=== PATIENT | female | born 1985 | race Caucasian/White ===

== ENCOUNTER 2016-11-08 22:13 | Emergency (ER) | payer OTHER ==
[~2016-11-08] VITALS: Ht 165.1 cm; Wt 3.6 kg
[2016-11-08 22:27] VITALS: BP 129/85; PULSE 85; RESP 16; O2SAT 100
[2016-11-08 22:49] LABS: Mean Corpuscular Hemoglobin 30.9 pg (27.0-35.0); Mean Corpuscular Volume 93.4 fL (81-100)
--- NOTE | 2016-11-08 22:49 | ED.REPORT ---
HPI-Seizure Date of Service Nov 08, 2016 ED Provider: Chico Aguirre MD 31 year old female presents to the ER via EMS accompanied by her and children due to seizure just prior to arrival. reports that he heard the patient hit the ground from another room in the house. He entered the room to find the patient on the ground, and witnessed a 20 second episode of tonic- clonic seizure activity, with blood/foaming from her mouth during, and confusion and disorientation after the event. Patient denies any memory of the episode, and any resultant head trauma from the fall. She mentions intermittent numbness of bilateral upper extremities over the past few months. Recently she was on a week course of Prednisone to treat chronic back issues. reports that the patient has been under a lot of stress lately. Nursing Notes Stated Complaint: SEIZURE Chief Complaint: Neuro Symptoms/ Deficits Nursing Notes Reviewed: Yes Allergies: Coded Allergies: No Known Allergies (Unverified , 11/08/16) General Time Seen by Provider: 22:49 Chief Complaint Chief Complaint: Seizure, generalized Hx Obtained From: Patient, Spouse Arrived By: Ambulance Onset Occurred: Just prior to arrival Associated with: Reports: Disoriented post-seizure, Tongue biting Pertinent Negative: Pt denies other symptoms Related History: Denies: Known seizure disorder Similar Sx Previous: No Past Medical History Past Surgical History Reports: Back/neck surgery Smoking History Unknown if Ever Smoker Social History Alcohol Use: "Social" Other Social History: Good social support, Ambulatory Status Independent Review of Systems Constitutional: Denies: Chills, Fever Respiratory: Denies: Non-productive cough, Shortness of breath Cardiovascular: Denies: Chest pain Neurologic: Reports: Confusion, Seizure, Denies: Focal weakness, Headache Complete sys rev & neg: except as marked. Physical Exam Initial Vital Signs Vital Signs (First) Date Time Temp Pulse Resp B/P Pulse Ox O2 Delivery O2 Flow Rate FiO2 11/08/16 22:27 36.4 85 16 129/85 100 Room Air Initial VS: Reviewed Head / Eyes: Atraumatic, Normocephalic Abdomen / GI: Soft, Non-tender, No guarding, No rebound, No distention Extremities: Vascular intact, Neuro intact, No swelling, No tenderness Skin: Warm, Dry, No cyanosis Psychiatric: Mood/affect normal, Behavior normal, Normal thought content General/Constitutional: Awake, Alert, Well developed, Well nourished Neck: Supple, No meningismus, Full range of motion, No swelling, Non-tender Respiratory / Chest: Breath sounds NL, Breath sounds = bilat, No respiratory distress, No rales, No rhonchi, No wheezing Cardiovascular: Heart rate NL, Regular rhythm, Heart sounds NL, Peripheral circulation NL Neurologic: Oriented X3, Speech NL, No motor deficits, No sensory deficits, CN II - XII intact, Reflexes equal bilat, Cerebellar NL Interpretation & Diagnostics Lab Results Interpretation Result Diagram: 11/08/16222911/08/162229 Test 11/08/16 22:25 11/08/16 22:30 Urine Color Yellow (YELLOW) Urine Appearance Clear (CLEAR,HAZY) Urine pH 7.5 (5.0-8.0) Urine Specific [place] 1.015 (1.003-1.035) Urine Protein Negativemg/dL (NEG,TRACE) Urine Glucose (UA) Negativemg/dL (NEGATIVE) Urine Ketones Tracemg/dL (NEGATIVE) Urine Occult Blood Negative (NEGATIVE) Urine Nitrite Negative (NEGATIVE) Urine Bilirubin Negative (NEGATIVE) Urine Urobilinogen Normalmg/dL (NORMAL) Urine Leukocyte Esterase Negative (NEGATIVE) Urine RBC 0-2/hpf (0-2) Urine WBC 0-5/hpf (0-5) Urine Epithelial Cells Moderate/hpf (NONE-MOD) Urine Crystals Amorphous phosphates Urine Bacteria None/hpf (NONE-FEW) Urine Hyaline Casts None/lpf (NONE) Urine Granular Casts None seen (NONE SEEN) Urine Waxy Casts None seen (NONE SEEN) Urine Red Blood Cell Casts None seen (NONE SEEN) Urine White Blood Cell Casts None seen (NONE SEEN) Urine Mucus Present (None Seen) Urine Trichomonas None seen (NONE SEEN) Urine Yeast None (NONE SEEN) Urinalysis Comment White Blood Count 10.7th/mm3 (3.8-10.1) Red Blood Count 4.11mil/mm3 (3.90-5.20) Hemoglobin 12.7g/dL (12.0-15.6) Hematocrit 38.4% (35.0-46.0) Mean Corpuscular Volume 93.4fL (81-100) Mean Corpuscular Hemoglobin 30.9pg (27.0-35.0) Mean Corpuscular Hemoglobin Concent 33.1% (32.0-37.0) Red Cell Distribution Width 13.0% (12.3-15.4) Platelet Count 312bil/L (150-400) Neutrophils (%) (Auto) 43.2% (40-74) Lymphocytes (%) (Auto) 46.5% (14-46) Monocytes (%) (Auto) 6.5% (4-12) Eosinophils (%) (Auto) 2.9% (0-5) Basophils (%) (Auto) 0.3% (0-3) Band Neutrophils % 1% (1-5) Prothrombin Time 11.1sec (8.1-12.5) Prothromb Time International Ratio 1.04ratio Sodium Level 141mEq/L (134-144) Potassium Level 3.7mEq/L (3.5-5.2) Chloride Level 10mEq/L (97-108) Carbon Dioxide Level 24mmol/L (18-29) Blood Urea Nitrogen 21mg/dL (6-20) Creatinine 0.84mg/dL (0.57-1.00) Estimat Glomerular Filtration Rate 113mL/min (>59) Glucose Level 88mg/dL (60-99) Calcium Level 8.2mg/dL (8.5-10.1) Total Bilirubin 0.5mg/dL (0.0-1.2) Aspartate Amino Transf (AST/SGOT) 16U/L (0-50) Alanine Aminotransferase (ALT/SGPT) 14U/L (0-32) Alkaline Phosphatase 61U/L (25-150) Total Protein 7.2g/dL (6.4-8.4) Albumin 4.1g/dL (3.4-5.0) Alcohols < 10mg/dL (0-10) ECG Interpretation ECG Interpretation: Sinus rhythm, rate 79 Time: 22:58 Interpreted by: ED physician X-Ray Chest Interpretation Chest Xray Interpretation: Normal. View: Portable, 1 view Interpretation / Wet Read by: Wet read ED physician CT Head Interpretation CONCLUSION: Normal non-contrast CT scan of the head. Electronically signed by Dahlia Conde MD Study: Head CT no contrast Interpretation / Wet Read by: Interpret - Radiologist Re-Eval/Medical Decision Med Decision/Clinical Course 31-year-old with no prior seizure history presents after sudden onset tonic-clonic seizure witnessed by the . Evaluation here reveals negative CT, benign blood labs, negative tox screen, and no particular explanation. No family history either. Discussed possibility of them. Seizure meds versus completion of evaluation and awaiting further developments. Her non-driving status disclosed explicitly to her and . She is referred to neurology Dr. campo and to her PCP. Prompt return if worse. Needs MRI and EEG, to be arranged. Discharged now in stable condition. Source of Hx: Old records Re-Evaluation/Progress #1: Time of Eval: 23:01 Re-Evaluation/Progress Note: Patient complains of right temporal headache. Re-Evaluation/Progress #2: Time of Eval: 02:09 Re-Evaluation/Progress Note: Discussed lab and imaging results and plan to discharge. Patient is amenable to the plan. Verbal discharge instructions given, particularly driving restrictions. Patient is opting not to start seizure medications at this time. Return precautions given. All other questions addressed. Counseled Regarding: Diagnosis, Lab results, Need for follow-up, When/why to return to ED Discharge & Departure Impression: Primary Impression: Seizure Disposition: Home Discharge Condition All VS Reviewed: Yes Condition: Stable Patient Instructions: Epilepsy (DC) Additional Instructions: We do not suggest beginning seizure medicines at this time. If you have a recurrent seizure, that would be reasonable. Call your doctor Friday for follow-up early this week. You will need an MRI of the brain, and also an EEG. Your doctor can arrange these. You will need neurologic follow-up. This will probably happen after you get your EEG and MRI. If you have questions tonight, call me at [phone]. Return promptly for recurrent seizure or any other new symptoms of concern. Referrals: NOPCP (PCP) Scribe Attestation Portions of this note were transcribed by Babak De Anda. I, Dr. Aguirre, personally performed the history, physical exam and medical decision-making; I reviewed and confirmed the accuracy of the information in the transcribed note. Signed by: Jose Ruiz. 11/09/2016 - 02:24 Chico Aguirre MD Nov 08, 2016 22:49 BABAK DE ANDA Nov 08, 2016 22:56
[2016-11-08 22:50] LABS: BASOPHILS % (AUTO) 0.3 % (0-3); EOSINOPHILS % (AUTO) 2.9 % (0-5); MONOCYTES % (AUTO) 6.5 % (4-12); NEUTROPHILS % (AUTO) 43.2 % (40-74); Platelet Count 312 bil/L (150-400)
[2016-11-08] MEDS ORDERED: 0.9% Sodium Chloride 1,000 ML IV ONE (22:55)
[2016-11-08 23:08] LABS: INR 1.04 ratio
[2016-11-08] MEDS ORDERED: Ondansetron 2 mg/mL 2 mL Inj IVPUSH ONE (23:10)
[2016-11-08 23:26] LABS: APPEARANCE,URINE CLEAR (CLEAR,HAZY); COLOR,URINE YELLOW (YELLOW); OCCULT BLOOD,URINE NEGATIVE (NEGATIVE); PH,URINE 7.5 (5.0-8.0); UROBILINOGEN,URINE NORMAL (NORMAL)
[2016-11-09 00:43] VITALS: BP 82/32; PULSE 74; RESP 15; O2SAT 98
[2016-11-09 02:47] VITALS: BP 100/60; PULSE 70; RESP 16; O2SAT 99
--- NOTE | 2016-11-09 06:21 | DRSVH ---
PROCEDURE: X-RAY CHEST ONE VIEW, PORTABLE ([id number]) INDICATIONS: 31-year-old female with seizures. TECHNIQUE: One view of the chest was acquired. COMPARISON: [facility], CR, CHEST 2VW, 12/24/2013, 11:22. [facility], CR, C HEST 2VW, 06/06/2008, 12:15. FINDINGS: Surgical changes and devices: None. Lungs and pleura: No pleural effusions or pneumothorax. Lungs are clear. Mediastinum: Mediastinal contours appear normal. Heart size is normal. Bones and chest wall: No suspicious bony lesions. Overlying soft tissues appear unremarkable. IMPRESSION: No acute cardiopulmonary disease. Dictated by: Antonio Lundberg M.D. on 11/09/2016 at 6:20 Approved by: Antonio Lundberg M.D. on 11/09/2016 at 6:20
--- NOTE | 2016-11-09 08:03 | DRSVH ---
PROCEDURE: CT BRAIN WITHOUT CONTRAST ([id number]) INDICATIONS: 31-year-old female with seizures. TECHNIQUE: Noncontrast 4.5 mm thick angled axial sections acquired from the foramen magnum to the vertex, with c oronal reformats. COMPARISON: None. FINDINGS: Preliminary interpretation rendered by [facility]. Image quality: Excellent. CSF spaces: Basal cisterns are patent. No extra-axial fluid collections. Ventricles are normal in size and shape. Brain: No midline shift. No intracranial masses or hemorrhage. Pablo-white matter interface is norm al. Skull and face: Calvarium and visualized facial bones are intact, without suspicious lesions. Sinuses: Visualized sinuses and mastoids are clear. IMPRESSION: No imaging explanation for seizures. No significant discrepancy with preliminary [facility] report. Dictated by: Antonio Lundberg M.D. on 11/09/2016 at 8:00 Approved by: Antonio Lundberg M.D. on 11/09/2016 at 8:01
== END 2016-11-09 02:48 | disposition home or self-care (01) ==
LOC: EDBD 22:13 → SED 22:13 → EDUNIT# 22:13 → SED 11-09 02:48
DX: R56.9 Unspecified convulsions (principal)
CPT/HCPCS: 36415; 70450; 71010; 80053; 81001; 81002; 81025; 85025; 85610; 93005; 96361; 96374; 99285; G0480; J2405; J7030